=== PATIENT | male | born 1960 | race Caucasian/White ===

== ENCOUNTER 2023-09-17 00:20 | Emergency (ER) | payer MEDICARE ==
[~2023-09-17] VITALS: Ht 180.3 cm; Wt 100.0 kg
[2023-09-17 00:24] VITALS: TEMP 98.8
[2023-09-17] MEDS ORDERED: normal saline 1000ml 1,000 ML IV ONE (02:55)
[2023-09-17] MEDS ORDERED: vancomycin/NS 1 GM ADD-VANTAGE 250 ML IV ONE ×2 (02:55→03:37)
[2023-09-17] MEDS ORDERED: morphine 4 MG/ML inj SYRINge IV ONE ×2 (02:55→03:38)
[2023-09-17] MEDS ORDERED: ondansetron/PF 4mg/2ml inj IV ONE (02:55)
[2023-09-17] MEDS ORDERED: piperacillin/tazo 4.5gm/100ml 100 ML IV SCH (02:57)
[2023-09-17] MEDS ORDERED: TETanus/Pertussis (Acell)/Diphther VAC/PF (Tdap-Adult) 0.5ml syringe IMVAC ONE ×2 (03:10→03:38)
[2023-09-17] MEDS ORDERED: ondansetron/PF 4mg/2ml inj ONE (03:38)
[2023-09-17 03:59] LABS: BASOPHILS % (AUTO) 0.6 % (0-1); EOSINOPHILS % (AUTO) 1.3 % (0-6); HEMATOCRIT 35.4 % (42.0-52.0); LYMPHOCYTES # (AUTO) 0.8 X10'3 (1.1-4.8); LYMPHOCYTES % (AUTO) 24.4 % (21-51); MEAN CORPUSCULAR HEMOGLOBIN 29.9 PG (27.0-31.0); MEAN CORPUSCULAR HGB CONC 33.9 g/dL (33.0-36.5); MEAN PLATELET VOLUME 7.8 FL (7.4-10.4); MONOCYTES # (AUTO) 0.3 X10'3 (0-0.9); MONOCYTES % (AUTO) 7.9 % (2-12); NEUTROPHILS # (AUTO) 2.2 X10'3 (1.8-7.7); NEUTROPHILS % (AUTO) 65.8 % (42-75); PLATELET COUNT 131 X10'3 (140-440); RED BLOOD COUNT 4.02 X10'6 (4.70-6.10); RED CELL DISTRIBUTION WIDTH 14.9 % (11.5-14.5); WHITE BLOOD COUNT 3.3 X10'3 (4.5-11.0)
[2023-09-17 04:08] LABS: ALANINE AMINOTRANSFERASE 18 U/L (12-78); ALBUMIN 3.6 G/DL (3.4-5.0); ALBUMIN/GLOBULIN RATIO 1.2 (1.1-1.5); ALKALINE PHOSPHATASE 73 IU/L (46-116); ANION GAP 11 (8-16); ASPARTATE AMINO TRANSFERASE 12 U/L (10-37); BILIRUBIN,TOTAL 0.5 MG/DL (0.1-1.0); BLOOD UREA NITROGEN 38 MG/DL (7-18); CALCIUM 8.7 MG/DL (8.5-10.1); CHLORIDE 105 MMOL/L (99-107); CREATININE 1.46 MG/DL (0.60-1.10); GLUCOSE 99 MG/DL (70-104); POTASSIUM 4.3 MMOL/L (3.5-5.1); SODIUM 140 MMOL/L (135-145); TOTAL CARBON DIOXIDE 24.5 MMOL/L (24-32); TOTAL PROTEIN 6.7 G/DL (6.4-8.2); eCRCL 55 ML/MIN; eGFR 49 ML/MIN
[2023-09-17] MEDS ORDERED: SULF1TAB49 PO (05:19)
[2023-09-17] MEDS ORDERED: CEPH-585 PO (05:19)
[2023-09-17 06:56] VITALS: BP 133/77; PULSE 75; O2SAT 98
[2023-09-17 08:21] VITALS: RESP 16
== END 2023-09-17 08:27 | disposition home or self-care (01) ==
LOC: ER 00:20
DX: L03.116 Cellulitis of left lower limb (principal)
CPT/HCPCS: 36415; 73590; 80053; 85025; 90471; 90715; 96365; 96366; 96368; 96375; 99284; J2270; J2405; J2543; J3370; J7030

== ENCOUNTER 2024-07-15 17:13 | Inpatient (IN) | payer MEDICARE, MEDICAID ==
[~2024-07-15] VITALS: Ht 180.3 cm; Wt 95.5 kg
[~2024-07-15 17:13] MED LIST: HYDR-3972 PO; MYCO360T3 PO; PRE5T PO; TACR1TAB PO
[2024-07-15 18:35] LABS: BASOPHILS % (AUTO) 0.6 % (0-1); EOSINOPHILS % (AUTO) 0.4 % (0-6); HEMOGLOBIN 11.2 g/dl (14.0-17.9); LYMPHOCYTES # (AUTO) 0.7 X10'3 (1.1-4.8); LYMPHOCYTES % (AUTO) 19.2 % (21-51); MEAN CORPUSCULAR HEMOGLOBIN 30.5 PG (27.0-31.0); MEAN CORPUSCULAR HGB CONC 33.9 g/dL (33.0-36.5); MEAN CORPUSCULAR VOLUME 89.9 FL (78-98); MEAN PLATELET VOLUME 7.7 FL (7.4-10.4); MONOCYTES # (AUTO) 0.2 X10'3 (0-0.9); MONOCYTES % (AUTO) 6.4 % (2-12); NEUTROPHILS # (AUTO) 2.7 X10'3 (1.8-7.7); NEUTROPHILS % (AUTO) 73.4 % (42-75); PLATELET COUNT 120 X10'3 (140-440); RED BLOOD COUNT 3.68 X10'6 (4.70-6.10); RED CELL DISTRIBUTION WIDTH 15.4 % (11.5-14.5); WHITE BLOOD COUNT 3.7 X10'3 (4.5-11.0)
[2024-07-15 18:45] LABS: ALBUMIN 3.8 G/DL (3.4-5.0); ANION GAP 3 (8-16); BLOOD UREA NITROGEN 33 MG/DL (7-18); BUN/CREATININE RATIO 20.5 (10.0-20.0); CALCIUM 8.5 MG/DL (8.5-10.1); CHLORIDE 103 MMOL/L (99-107); CREATININE 1.61 MG/DL (0.60-1.10); GLUCOSE 94 MG/DL (70-104); POTASSIUM 5.4 MMOL/L (3.5-5.1); SODIUM 132 MMOL/L (135-145); TOTAL CARBON DIOXIDE 25.7 MMOL/L (24-32); eCRCL 49 ML/MIN; eGFR 43 ML/MIN
[2024-07-15] MEDS ORDERED: iohexol 300mg/ml 100ml inj. ONE (19:02)
[2024-07-15] MEDS: CefTRIAXone/D5W-Rocephin 1gm 50 ML IV ONE (19:36)
[2024-07-15] MEDS: VANCOMYCIN 1GM 200ML H20 (PEG) 200 ML IV ONE (20:03)
[2024-07-15] MEDS ORDERED: HYDROcodone/acetaminophen 5mg/325mg tablet PO PRN (20:25)
[2024-07-15] MEDS ORDERED: potassium Cl 20 mEq SR tablet PO PRN ×2 (20:25)
[2024-07-15] MEDS ORDERED: acetaminophen 325mg tablet PO PRN ×2 (20:25)
[2024-07-15] MEDS ORDERED: magnesium sulf-water 2g/50mL 50 ML IV PRN (20:25)
[2024-07-15] MEDS ORDERED: mag hydrox/Alum hydrox/simeth 30ml oral suspension PO PRN (20:25)
[2024-07-15] MEDS ORDERED: magnesium sulf-water 4G/100mL 100 ML IV PRN (20:25)
[2024-07-15] MEDS ORDERED: magnesium Cl slow-release 64mg tablet PO PRN (20:25)
[2024-07-15] MEDS ORDERED: ondansetron/PF 4mg/2ml inj IV PRN (20:25)
[2024-07-15] MEDS ORDERED: potassium Cl 40MEQ/1/2NS 520ml 520 ML IV PRN (20:25)
[2024-07-15] MEDS: normal saline 1000ml 1,000 ML IV SCH (21:05)
[2024-07-15] MEDS: HYDROcodone/acetaminophen 10/325mg tab PO PRN (21:21)
[2024-07-15] MEDS ORDERED: SODI650T29 PO (23:33)
[2024-07-15] MEDS ORDERED: CEFA500C PO (23:34)
[2024-07-16] MEDS: cefepime 1GM in D5W 50mL 100 ML IV SCH (01:01)
[2024-07-16] MEDS: TACROLIMUS 1 MG PO SCH (01:03)
[2024-07-16] MEDS: MYCOPHENOLATE SODIUM 360 MG PO SCH ×2 (01:03→20:07)
[2024-07-16] MEDS: sodium bicarbonate 650mg tablet PO SCH (01:12)
[2024-07-16] MEDS: predniSONE 5mg tablet PO SCH (07:55)
[2024-07-16] MEDS: VANCOMYCIN 1GM 200ML H20 (PEG) 200 ML IV SCH (07:55)
[2024-07-16] MEDS: K and/or MAG REPLACEMENT MC SCH (08:00)
[2024-07-16] MEDS ORDERED: metroNIDAZOLE-Flagyl 500mg/NS 100 ML IV SCH (08:00)
[2024-07-16] MEDS: morphine 2 MG/ML inj. syringe IV PRN (08:22)
[2024-07-16 09:46] LABS: BASOPHILS % (AUTO) 0.8 % (0-1); EOSINOPHILS % (AUTO) 1.3 % (0-6); HEMATOCRIT 32.1 % (42.0-52.0); HEMOGLOBIN 10.7 g/dl (14.0-17.9); LYMPHOCYTES # (AUTO) 0.5 X10'3 (1.1-4.8); LYMPHOCYTES % (AUTO) 21.5 % (21-51); MEAN CORPUSCULAR HGB CONC 33.2 g/dL (33.0-36.5); MEAN CORPUSCULAR VOLUME 90.2 FL (78-98); MEAN PLATELET VOLUME 7.8 FL (7.4-10.4); MONOCYTES # (AUTO) 0.1 X10'3 (0-0.9); MONOCYTES % (AUTO) 6.3 % (2-12); NEUTROPHILS # (AUTO) 1.6 X10'3 (1.8-7.7); NEUTROPHILS % (AUTO) 70.1 % (42-75); PLATELET COUNT 112 X10'3 (140-440); RED BLOOD COUNT 3.56 X10'6 (4.70-6.10); RED CELL DISTRIBUTION WIDTH 15.1 % (11.5-14.5); WHITE BLOOD COUNT 2.3 X10'3 (4.5-11.0)
[2024-07-16 09:47] LABS: PROTHROMBIN TIME 10.9 SECONDS (9.0-12.0)
[2024-07-16 09:51] LABS: ALBUMIN 2.9 G/DL (3.4-5.0); ANION GAP 8 (8-16); BLOOD UREA NITROGEN 29 MG/DL (7-18); BUN/CREATININE RATIO 19.9 (10.0-20.0); CHLORIDE 105 MMOL/L (99-107); CREATININE 1.46 MG/DL (0.60-1.10); GLUCOSE 177 MG/DL (70-104); MAGNESIUM 1.7 MG/DL (1.5-2.4); PHOSPHORUS 3.1 MG/DL (2.3-4.5); POTASSIUM 4.6 MMOL/L (3.5-5.1); SODIUM 134 MMOL/L (135-145); TOTAL CARBON DIOXIDE 21.1 MMOL/L (24-32); eCRCL 54 ML/MIN; eGFR 49 ML/MIN
[2024-07-16] MEDS ORDERED: cefepime 1GM/NS ADD-VANTAGE 100 ML IV SCH (10:05)
[2024-07-16] MEDS ORDERED: cefepime 1GM in D5W 50mL 50 ML IV SCH (10:07)
[2024-07-16 10:09] LABS: TOTAL CELLS COUNTED 100
[2024-07-16 10:11] LABS: PLATELET ESTIMATE DECREASED; POIKILOCYTOSIS FEW
[2024-07-16] MEDS ORDERED: albuterol 2.5 MG/3 ML nebule NEB PRN (10:40)
[2024-07-16] MEDS: cefepime 1GM in D5W 50mL 50 ML IV SCH (10:50)
[2024-07-16] MEDS: heparin, porcine 5000 units/ml vial SQ SCH (13:54)
[2024-07-16 14:00] VITALS: RESP 16
[2024-07-16 18:00] VITALS: BP 122/69; PULSE 64; RESP 20; TEMP 97.5; O2SAT 94
[2024-07-16 20:10] VITALS: RESP 18
[2024-07-16 22:00] VITALS: BP 123/72; PULSE 57; RESP 13; TEMP 97.5; O2SAT 98
[2024-07-17 07:06] VITALS: BP 138/71; PULSE 60; RESP 14; TEMP 97.9; O2SAT 99
[2024-07-17] MEDS: VANCOMYCIN LEVEL IV ONE (07:58)
[2024-07-17 08:00] VITALS: RESP 16
[2024-07-17 08:00] LABS: EOSINOPHILS % (AUTO) 1.4 % (0-6); LYMPHOCYTES # (AUTO) 0.5 X10'3 (1.1-4.8); MEAN CORPUSCULAR VOLUME 89.5 FL (78-98); MEAN PLATELET VOLUME 7.8 FL (7.4-10.4); PLATELET COUNT 121 X10'3 (140-440)
[2024-07-17 08:02] LABS: BASOPHILS % (AUTO) 0.8 % (0-1); HEMATOCRIT 34.4 % (42.0-52.0); HEMOGLOBIN 11.6 g/dl (14.0-17.9); LYMPHOCYTES % (AUTO) 24.1 % (21-51); MEAN CORPUSCULAR HEMOGLOBIN 30.1 PG (27.0-31.0); MEAN CORPUSCULAR HGB CONC 33.6 g/dL (33.0-36.5); MONOCYTES # (AUTO) 0.2 X10'3 (0-0.9); MONOCYTES % (AUTO) 6.9 % (2-12); NEUTROPHILS # (AUTO) 1.5 X10'3 (1.8-7.7); NEUTROPHILS % (AUTO) 66.8 % (42-75); RED BLOOD COUNT 3.84 X10'6 (4.70-6.10); RED CELL DISTRIBUTION WIDTH 14.9 % (11.5-14.5); WHITE BLOOD COUNT 2.2 X10'3 (4.5-11.0)
[2024-07-17 08:10] LABS: ALBUMIN 3.1 G/DL (3.4-5.0); ANION GAP 6 (8-16); BLOOD UREA NITROGEN 25 MG/DL (7-18); BUN/CREATININE RATIO 17.9 (10.0-20.0); CALCIUM 8.1 MG/DL (8.5-10.1); CHLORIDE 104 MMOL/L (99-107); GLUCOSE 89 MG/DL (70-104); MAGNESIUM 1.6 MG/DL (1.5-2.4); POTASSIUM 4.5 MMOL/L (3.5-5.1); SODIUM 134 MMOL/L (135-145); TOTAL CARBON DIOXIDE 24.5 MMOL/L (24-32); eCRCL 57 ML/MIN; eGFR 51 ML/MIN
[2024-07-17 10:26] LABS: PLATELET ESTIMATE DECREASED; TOTAL CELLS COUNTED 100
[2024-07-17 11:40] VITALS: BP 127/73; PULSE 68; RESP 18; TEMP 97.7; O2SAT 97
[2024-07-17] MEDS: VANCOMYCIN/WATER FOR INJ (PEG) 750MG/150 ML IVPB IV SCH (11:51)
[2024-07-17 14:01] VITALS: RESP 18
[2024-07-17] MEDS ORDERED: CEPH500C2 PO (15:02)
[2024-07-18] MEDS ORDERED: VANCOMYCIN LEVEL IV ONE (21:30)
== END 2024-07-17 17:04 | disposition home or self-care (01) | DRG 602 ==
LOC: ER 17:13 → ED HOLD 20:30 → EDBEDREQ 07-16 11:57 → SUR 3N 07-16 12:30
PROVIDERS: ADMIT Internal Medicine Critical Care Medicine; ATTEND Nurse Practitioner Family
PROC: BP2U1ZZ Computerized Tomography (CT Scan) of Left Upper Extremity using Low Osmolar Contrast (ICD-10-PCS; principal; 2024-07-15)
DX: L03.114 Cellulitis of left upper limb (principal); N17.0 Acute kidney failure with tubular necrosis; D84.89 Other immunodeficiencies; E87.1 Hypo-osmolality and hyponatremia; Z94.4 Liver transplant status; T86.12 Kidney transplant failure; E86.0 Dehydration; Y83.8 Other surgical procedures as the cause of abnormal reaction of the patient, or of later complication, without mention of misadventure at the time of the procedure; K74.60 Unspecified cirrhosis of liver; Z85.828 Personal history of other malignant neoplasm of skin; Z79.899 Other long term (current) drug therapy; Z87.891 Personal history of nicotine dependence; Y92.89 Other specified places as the place of occurrence of the external cause; Z79.60 Long term (current) use of unspecified immunomodulators and immunosuppressants
CPT/HCPCS: 36415; 73201; 80048; 80202; 83605; 83735; 84100; 84145; 85007; 85025; 85610; 87040; 87070; 87077; 87081; 87186; 97116; 97161; 97530; 99285; A6212; G0378; J0692; J0696; J1644; J2270; J3372; J7030; J7512; Q9967

== ENCOUNTER 2024-09-09 11:44 | Observation (INO) | payer MEDICARE, MEDICAID ==
[~2024-09-09] VITALS: Ht 180.3 cm; Wt 94.5 kg
[~2024-09-09 11:44] MED LIST changes: -HYDR-3972 PO; +SODI650T29 PO
[2024-09-09 16:17] LABS: EOSINOPHILS % (AUTO) 0.9 % (0-6); HEMATOCRIT 36.2 % (42.0-52.0); HEMOGLOBIN 12.2 g/dl (14.0-17.9); LYMPHOCYTES # (AUTO) 0.7 X10'3 (1.1-4.8); LYMPHOCYTES % (AUTO) 23.2 % (21-51); MEAN CORPUSCULAR HEMOGLOBIN 30.2 PG (27.0-31.0); MEAN CORPUSCULAR HGB CONC 33.9 g/dL (33.0-36.5); MEAN CORPUSCULAR VOLUME 89.2 FL (78-98); MONOCYTES # (AUTO) 0.2 X10'3 (0-0.9); MONOCYTES % (AUTO) 5.9 % (2-12); NEUTROPHILS # (AUTO) 2.1 X10'3 (1.8-7.7); PLATELET COUNT 126 X10'3 (140-440); RED BLOOD COUNT 4.05 X10'6 (4.70-6.10); RED CELL DISTRIBUTION WIDTH 14.4 % (11.5-14.5); WHITE BLOOD COUNT 3.1 X10'3 (4.5-11.0)
[2024-09-09 16:27] LABS: ALBUMIN 3.7 G/DL (3.4-5.0); ANION GAP 7 (8-16); BLOOD UREA NITROGEN 30 MG/DL (7-18); BUN/CREATININE RATIO 19.4 (10.0-20.0); CALCIUM 8.7 MG/DL (8.5-10.1); CHLORIDE 109 MMOL/L (99-107); CREATININE 1.55 MG/DL (0.60-1.10); GLUCOSE 98 MG/DL (70-104); SODIUM 139 MMOL/L (135-145); TOTAL CARBON DIOXIDE 23.2 MMOL/L (24-32); eCRCL 51 ML/MIN; eGFR 45 ML/MIN
[2024-09-09 16:33] LABS: POTASSIUM 6.2 MMOL/L (3.5-5.1)
[2024-09-09] MEDS: insulin regular, human 10 units/0.1 ml syringe SQ ONE (17:00)
[2024-09-09] MEDS: CALCIUM GLUC 1gm/50ml NACL,iso 50 ML IV ONE (17:49)
[2024-09-09] MEDS ORDERED: magnesium hydroxide 30ml (MOM) UD suspension PO PRN (18:20)
[2024-09-09] MEDS ORDERED: potassium Cl 20 mEq SR tablet PO PRN ×2 (18:20)
[2024-09-09] MEDS ORDERED: magnesium sulf-water 4G/100mL 100 ML IV PRN (18:20)
[2024-09-09] MEDS ORDERED: acetaminophen 325mg tablet PO PRN (18:20)
[2024-09-09] MEDS ORDERED: magnesium sulf-water 2g/50mL 50 ML IV PRN (18:20)
[2024-09-09] MEDS ORDERED: ondansetron/PF 4mg/2ml inj IV PRN (18:20)
[2024-09-09] MEDS ORDERED: potassium Cl 40MEQ/1/2NS 520ml 520 ML IV PRN (18:20)
[2024-09-09] MEDS ORDERED: magnesium Cl slow-release 64mg tablet PO PRN (18:20)
[2024-09-09] MEDS ORDERED: mag hydrox/Alum hydrox/simeth 30ml oral suspension PO PRN (18:20)
[2024-09-09] MEDS: albuterol 2.5 MG/3 ML nebule NEB ONE (18:25)
[2024-09-09] MEDS: dextrose 50%-water 50ml dispensing syringe IV ONE ×2 (19:21→20:36)
[2024-09-09] MEDS: normal saline 1000ml 1,000 ML IV SCH (19:21)
[2024-09-09] MEDS: K and/or MAG REPLACEMENT MC SCH (19:29)
[2024-09-09] MEDS: docusate sod 100mg capsule PO SCH (19:29)
[2024-09-09] MEDS: insulin regular, human 10 units/0.1 ml syringe IV ONE (19:29)
[2024-09-09 21:20] LABS: ALANINE AMINOTRANSFERASE 11 U/L (12-78); ALBUMIN 3.5 G/DL (3.4-5.0); ALBUMIN/GLOBULIN RATIO 1.1 (1.1-1.5); ALKALINE PHOSPHATASE 72 IU/L (46-116); ANION GAP 6 (8-16); ASPARTATE AMINO TRANSFERASE 12 U/L (10-37); BILIRUBIN,TOTAL 0.4 MG/DL (0.1-1.0); BLOOD UREA NITROGEN 29 MG/DL (7-18); BUN/CREATININE RATIO 16.9 (10.0-20.0); CALCIUM 8.4 MG/DL (8.5-10.1); CHLORIDE 109 MMOL/L (99-107); CREATININE 1.72 MG/DL (0.60-1.10); GLUCOSE 162 MG/DL (70-104); POTASSIUM 4.8 MMOL/L (3.5-5.1); SODIUM 139 MMOL/L (135-145); TOTAL PROTEIN 6.6 G/DL (6.4-8.2); eCRCL 46 ML/MIN; eGFR 40 ML/MIN
[2024-09-09] MEDS ORDERED: ipratropium/albuterol 3ml nebule NEB PRN (21:45)
[2024-09-09] MEDS: heparin, porcine 5000 units/ml vial SQ SCH (21:49)
[2024-09-09 22:57] VITALS: PULSE 68; RESP 16; O2SAT 99
[2024-09-10 08:03] LABS: URINE AMPHETAMINE SCREEN NEGATIVE (Neg); URINE BARBITUATE SCREEN NEGATIVE (Neg); URINE BENZODIAZEPINES SCREEN NEGATIVE (Neg); URINE CANNABINOID SCREEN POSITIVE (Neg); URINE COCAINE SCREEN NEGATIVE (Neg); URINE METHADONE SCREEN NEGATIVE (Neg); URINE OPIATE SCREEN NEGATIVE (Neg); URINE PHENCYCLIDINE SCREEN NEGATIVE (Neg)
[2024-09-10 08:09] LABS: BILIRUBIN,URINE NEGATIVE (Neg); CLARITY,URINE CLEAR (Clear); COLOR,URINE YELLOW (Yellow); GLUCOSE, URINE 100 mg/dl (Neg); KETONES,URINE NEGATIVE (Neg); LEUKOCYTE ESTERASE ,URINE NEGATIVE (Neg); NITRITES, URINE NEGATIVE (Neg); OCCULT BLOOD,URINE TRACE-INTACT (Neg); PROTEIN,URINE NEGATIVE (Neg); UROBILINOGEN,URINE 0.2 E.U/dL (0.2-1.0)
[2024-09-10 08:11] LABS: UA COLLECTION TYPE NON-SPECIFIED
[2024-09-10 08:22] LABS: BACTERIA,URINE NONE SEEN /HPF (Neg); MUCUS STRANDS NONE SEEN /LPF (Neg); RBC,URINE 0-2 /HPF (0-2); SQUAMOUS EPITHELIAL CELL,UR FEW /LPF (FEW); TRANSITIONAL EPI CELLS,URINE FEW /HPF; WBC,URINE 0-4 /HPF (0-4)
[2024-09-10] MEDS: MYCOPHENOLATE SODIUM 360 MG PO SCH (10:14)
[2024-09-10] MEDS: TACROLIMUS 1 MG PO SCH (10:14)
[2024-09-10] MEDS: sodium bicarbonate 650mg tablet PO SCH (10:15)
[2024-09-10 10:58] LABS: ALANINE AMINOTRANSFERASE 13 U/L (12-78); ALBUMIN 3.5 G/DL (3.4-5.0); ALBUMIN/GLOBULIN RATIO 1.1 (1.1-1.5); ALKALINE PHOSPHATASE 80 IU/L (46-116); ANION GAP 8 (8-16); ASPARTATE AMINO TRANSFERASE 14 U/L (10-37); BLOOD UREA NITROGEN 27 MG/DL (7-18); BUN/CREATININE RATIO 18.4 (10.0-20.0); CALCIUM 8.6 MG/DL (8.5-10.1); CHLORIDE 107 MMOL/L (99-107); CREATININE 1.47 MG/DL (0.60-1.10); GLUCOSE 93 MG/DL (70-104); MAGNESIUM 1.7 MG/DL (1.5-2.4); POTASSIUM 5.7 MMOL/L (3.5-5.1); SODIUM 138 MMOL/L (135-145); TOTAL PROTEIN 6.6 G/DL (6.4-8.2); eCRCL 54 ML/MIN; eGFR 48 ML/MIN
[2024-09-10 11:06] LABS: BILIRUBIN,TOTAL 0.5 MG/DL (0.1-1.0)
[2024-09-10 11:09] LABS: BASOPHILS % (AUTO) 0.7 % (0-1); EOSINOPHILS % (AUTO) 1.5 % (0-6); HEMATOCRIT 37.6 % (42.0-52.0); HEMOGLOBIN 12.6 g/dl (14.0-17.9); LYMPHOCYTES # (AUTO) 0.8 X10'3 (1.1-4.8); LYMPHOCYTES % (AUTO) 26.2 % (21-51); MEAN CORPUSCULAR HEMOGLOBIN 29.6 PG (27.0-31.0); MEAN CORPUSCULAR HGB CONC 33.4 g/dL (33.0-36.5); MEAN CORPUSCULAR VOLUME 88.6 FL (78-98); MEAN PLATELET VOLUME 8.4 FL (7.4-10.4); MONOCYTES # (AUTO) 0.2 X10'3 (0-0.9); MONOCYTES % (AUTO) 6.3 % (2-12); NEUTROPHILS % (AUTO) 65.3 % (42-75); PLATELET COUNT 134 X10'3 (140-440); RED BLOOD COUNT 4.24 X10'6 (4.70-6.10); RED CELL DISTRIBUTION WIDTH 14.4 % (11.5-14.5); WHITE BLOOD COUNT 3.1 X10'3 (4.5-11.0)
[2024-09-10] MEDS: sodium polystyrene sulfonate 15gm/60ml oral suspension PO ONE (13:48)
[2024-09-10 14:27] LABS: POTASSIUM 5.7 MMOL/L (3.5-5.1)
[2024-09-10] MEDS ORDERED: KAY15L PO (17:38)
[2024-09-10] MEDS ORDERED: SODI650T29 PO (17:41)
[2024-09-10 18:28] VITALS: BP 134/78; PULSE 72; RESP 18; TEMP 98.1; O2SAT 98
[2024-09-10] MEDS ORDERED: MYCOPHENOLATE SODIUM 360 MG PO SCH (20:00)
[2024-09-11] MEDS ORDERED: TACROLIMUS 1 MG PO SCH (08:00)
[2024-09-11] MEDS ORDERED: predniSONE 5mg tablet PO SCH (08:00)
== END 2024-09-10 18:38 | disposition home or self-care (01) ==
LOC: ER 11:45 → ED HOLD 18:21 → INTOOBSV 18:21 → ED HOLD 18:21 → UNDOADMOB 18:21 → UNDODISOB 09-10 18:38
PROVIDERS: ADMIT Family Medicine; ATTEND Family Medicine
DX: E87.5 Hyperkalemia (principal); Z20.822 Contact with and (suspected) exposure to COVID-19; R22.2 Localized swelling, mass and lump, trunk; Z79.899 Other long term (current) drug therapy; Z94.0 Kidney transplant status; Z94.4 Liver transplant status; Z79.60 Long term (current) use of unspecified immunomodulators and immunosuppressants
CPT/HCPCS: 36415; 71250; 80053; 80305; 81001; 82948; 83735; 83930; 84132; 85025; 87502; 87503; 87811; 93005; 94760; 96361; 96365; 96372; 96375; 96376; 99285; G0378; J1644; J1815; J3490; J7030; 80048; 85007; J0610

== ENCOUNTER 2025-03-02 08:30 | Emergency (ER) | payer MEDICARE, MEDICAID ==
[~2025-03-02] VITALS: Ht 177.8 cm; Wt 89.8 kg
[2025-03-02 08:34] VITALS: TEMP 98.7
[2025-03-02 09:22] VITALS: BP 119/75; PULSE 82; RESP 17; O2SAT 96
--- NOTE | 2025-03-02 09:29 | Physician Documentation ---
History of Present Illness ~ Chief Complaint: Wound Stated Complaint: RADIATION ISSUES Time Seen by MD: 09:04 OK to notify your PCP?: Yes Primary Medical Doctor: nasra matos Source: patient Mode of Arrival: POV Exam Limitations: no limitations HPI 65-year-old male with chief complaint wound to his right chest wall which started about two weeks after he completed his last radiation treatment. He did 10 treatments to the right chest wall due to metastatic squamous cell carcinoma. He states that there was a small wound there which he attributed to his squamous cell but that two weeks after the radiation it became significantly larger. He reports the area is sore, but not painful, but then states "but I am on pain pills." Patient denies fever, chills, nausea, vomiting, shortness of breath. Medication Reconciliation Allergies: Coded Allergies: No Known Allergies (Unverified , 09/09/24) Scheduled Mycophenolate Sodium (Mycophenolic Acid), 2 TAB PO BID, (Reported) Prednisone (predniSONE tablet), 1 TAB PO DAILY, (Reported) Sodium Bicarbonate (Antacid), 1 TAB PO TID Tacrolimus (Envarsus Xr), 6 TAB PO QAM, (Reported) Past Medical History Past Medical History: No Pertinent History Other Past Surgical History: Liver transplant, kidney transplant Alcohol Use: None Drug Use: none Lives with: Alone Lives In: Home Review of Systems All Other Systems at this time: Reviewed and Negative Physical Exam Vital Signs: Temperature: 98.7, Source: Temporal, Heart Rate: 86, Respiratory Rate: 16, BP: 133/71, Pulse Oximetry: 97, Weight: 89.850 Physical Exam GENERAL: Alert, no acute distress. HEENT: NCAT, EOMI, PERRL, normal oropharynx, moist oral mucosa. NECK: Supple, trachea midline. CARDIAC: Regular rate and rhythm, no murmurs, rubs, or gallops. Equal distal pulses. No lower extremity edema, cap refill less than 2 seconds. RESPIRATORY: Equal breath sounds, clear to auscultation bilaterally, no respiratory distress. MUSCULOSKELETAL: Normal range of motion, nontender, no swelling. Normal gait. NEUROLOGICAL: Awake, alert, and oriented x 3. SKIN: Warm/dry, no pallor, no rash. RIGHT CHEST WALL THERE IS OPEN WOUND MEASURING ABOUT 6CM IN DIAMETER, WOUND EDGES ARE WELL DEFINED, CENTER OF WOUND IS VERY THICK YELLOW SLOUGH THAT IS NOT PARTICULARLY ODOROUS. SKIN SURROUNDING THE WOUND IS INDURATED BY ABOUT 3CM, NO FLUCTUANCE. NO ERYTHEMA OR WARMTH. PSYCH: Alert and appropriate. Affect congruent with mood. Speech is clear. Good eye contact. Progress Results/Orders Results/Orders Orders - ANNA HENDRIX Cult (Aer) Routine C&S+Gram St (03/02/25 09:22) BMP (03/02/25 09:22) Completed Orders - ANNA HENDRIX Cbc/Diff (03/02/25 09:22) Vital Signs 03/02/25 03/02/25 03/02/25 08:34 09:22 09:22 Temp 98.7 Pulse 86 82 Resp 16 17 16 B/P (MAP) 133/71 119/75 (90) Pulse Ox 97 96 O2 Flow Rate 0 Laboratory Tests Test 03/02/25 09:43 White Blood Count 3.3 L Red Blood Count 3.55 L Hemoglobin 9.6 L Hematocrit 28.8 L Mean Corpuscular Volume 80.9 Mean Corpuscular Hemoglobin 27.1 Mean Corpuscular Hemoglobin Concent 33.4 Red Cell Distribution Width 15.6 H Platelet Count 152 Mean Platelet Volume 6.9 L Neutrophils (%) (Auto) 76.2 H Lymphocytes (%) (Auto) 13.3 L Monocytes (%) (Auto) 9.0 Eosinophils (%) (Auto) 1.0 Basophils (%) (Auto) 0.5 Neutrophils # (Auto) 2.5 Lymphocytes # (Auto) 0.4 L Monocytes # (Auto) 0.3 Eosinophils # (Auto) 0.0 Basophils # (Auto) 0.0 CBC Comment Chemistry Comments Medical Decision Making Differential Dx:Considerations: Include: Abscess, AIDS/HIV, Anthrax (cutaneous), Atopic dermatitis, Candidiasis, Contact dermatitis, Drug reaction, Erythema multiforme, Erysipelas, Gangrene, Herpes zoster, Herpes simplex, Hidradenitis suppurativa, Impetigo, Intertrigo, Lymes disease, Molluscum contagiosum, Osteomyelitis, Pediculosis, Pityriasis rosea, Psoriaisis, RMSF, Rosacea, Scabies, Scarlet fever, Tinea, Urticaria, Varicella, Viral exanthema Additional Comment CONSIDERING THIS WOUND IS IN THE AREA WHERE PATIENT JUST COMPLETED 10 RADIATION TREATMENTS FOR METASTATIC SQUAMOUS CELL CARCINOMA I SUSPECT THAT THIS IS EITHER HIS SCC WHICH HAS INVADED CHEST WALL, ESPECIALLY AFTER I REVIEWED CT SCAN FROM 08/2024 WHICH SHOWED LARGE MASS IN THIS EXACT SAME AREA. I HAD MY SUPERVISING PHYSICIAN ASSESS THE AREA WELL. Departure Time of Disposition: 10:03 Disposition: 01 HOME / SELF CARE / HOMELESS Impression: Primary Impression: Wound Additional Impression: Metastatic squamous cell carcinoma Condition: Stable Discharge Instructions: General Discharge Instructions Additional Instructions: FOLLOW UP WITH YOUR ONCOLOGIST MAKE SURE THAT YOUR ONCOLOGIST IS AWARE OF THIS WOUND ON YOUR CHEST WALL I SUSPECT THIS WOUND IS RELATED TO YOUR SQUAMOUS CELL CARCINOMA. YOU ALSO ALREADY HAVE AN APPOINTMENT WITH WOUND CARE TO GET ESTABLISHED THIS WILL HELP YOU TO MANAGE THE WOUND. I DO NOT SUSPECT INFECTION THERE IS NO REDNESS OR WARMTH AROUND THE WOUND, YOU DENIED HAVING ANY INCREASED PAIN IN THE AREA, YOU ARE AFEBRILE, LABS FAIRLY UNREMARKABLE. Referrals: NO PRIMARY CARE PROVIDER (PCP) Education Educated: Patient Educated regarding: diagnosis, treatment, need for follow up Signature Scribe Signature: X Attestation: ANNA AKERS Mar 02, 2025 09:29
[2025-03-02 09:52] LABS: BASOPHILS % (AUTO) 0.5 % (0-1); HEMATOCRIT 28.8 % (42.0-52.0); HEMOGLOBIN 9.6 g/dl (14.0-17.9); LYMPHOCYTES # (AUTO) 0.4 X10'3 (1.1-4.8); LYMPHOCYTES % (AUTO) 13.3 % (21-51); MEAN CORPUSCULAR HEMOGLOBIN 27.1 PG (27.0-31.0); MEAN CORPUSCULAR HGB CONC 33.4 g/dL (33.0-36.5); MEAN CORPUSCULAR VOLUME 80.9 FL (78-98); MEAN PLATELET VOLUME 6.9 FL (7.4-10.4); MONOCYTES # (AUTO) 0.3 X10'3 (0-0.9); NEUTROPHILS # (AUTO) 2.5 X10'3 (1.8-7.7); NEUTROPHILS % (AUTO) 76.2 % (42-75); PLATELET COUNT 152 X10'3 (140-440); RED BLOOD COUNT 3.55 X10'6 (4.70-6.10); RED CELL DISTRIBUTION WIDTH 15.6 % (11.5-14.5); WHITE BLOOD COUNT 3.3 X10'3 (4.5-11.0)
[2025-03-02 10:03] LABS: ALBUMIN 2.9 G/DL (3.4-5.0); ANION GAP 7 (8-16); BLOOD UREA NITROGEN 34 MG/DL (7-18); BUN/CREATININE RATIO 25.2 (10.0-20.0); CALCIUM 8.4 MG/DL (8.5-10.1); CHLORIDE 101 MMOL/L (99-107); CREATININE 1.35 MG/DL (0.60-1.10); GLUCOSE 106 MG/DL (70-104); POTASSIUM 4.5 MMOL/L (3.5-5.1); SODIUM 134 MMOL/L (135-145); TOTAL CARBON DIOXIDE 25.9 MMOL/L (24-32); eCRCL 56 ML/MIN; eGFR 53 ML/MIN
== END 2025-03-02 10:50 | disposition home or self-care (01) ==
LOC: ER 08:31
DX: S20.301A Unspecified superficial injuries of right front wall of thorax, initial encounter (principal); C79.9 Secondary malignant neoplasm of unspecified site; Z94.0 Kidney transplant status; Z94.4 Liver transplant status; X58.XXXA Exposure to other specified factors, initial encounter; Y93.89 Activity, other specified; Y92.89 Other specified places as the place of occurrence of the external cause; Y99.8 Other external cause status
CPT/HCPCS: 36415; 80048; 85025; 87070; 87077; 87186; 99283; A6222; A6402; A6449